=== PATIENT | male | born 1945 | race Caucasian/White ===

== ENCOUNTER 2023-07-07 09:06 | Inpatient (IN) | payer OTHER, MEDICARE, SELFPAY ==
--- NOTE | ~2023-07-07 | XR_ITS ---
EXAMINATION: XR CHEST CLINICAL INFORMATION: Shortness of breath. COMPARISON: None available. TECHNIQUE: Frontal view of the chest was obtained. FINDINGS: Lungs are well-inflated. There are some smoothly thickened septal lines in the periphery of lower lung zones. The right lateral costophrenic sulcus is blunted from a small pleural effusion. Cardiac silhouette is borderline enlarged. There is atherosclerotic calcification of the aorta. The visualized bones are intact. XR/XR chest 1V IMPRESSION: Mild interstitial pulmonary edema and small right pleural effusion (mild CHF).
[2023-07-07 09:12] VITALS: BP 155/42; PULSE 73; RESP 20; TEMP 36.8; O2SAT 97; BMI 30.1
[2023-07-07 09:35] LABS: MANUAL DIFF FLAG NO
[2023-07-07 09:36] LABS: Basophils Percent Auto 0.5 % (0-2); Eosinophils Absolute Auto 0.1 X10*3/uL (0.0-0.4); Eosinophils Percent Auto 0.8 % (0-4); Hematocrit 34.3 % (42.0-52.0); Hemoglobin 12.3 g/dl (14.0-18.0); Imm Gran Abs Auto 0.03 X10*3/uL (0.00-0.03); Imm Gran Pct Auto 0.4 % (0.0-0.4); Lymphocytes Percent Auto 13.7 % (20-40); Mean Corpuscular HGB Conc 35.9 g/dl (31.0-36.0); Mean Corpuscular Hemoglobin 30.2 pg (27.0-33.0); Mean Corpuscular Volume 84.3 fL (80.0-98.0); Mean Platelet Volume 9.2 fL (9.4-12.4); Monocytes Absolute Auto 0.7 X10*3/uL (0.1-1.2); Monocytes Percent Auto 9.4 % (2-11); Neutrophils Absolute Auto 5.5 x10*3/uL (2.0-8.3); Neutrophils Percent Auto 75.2 % (45-73); Platelet Count 171 X10*3/uL (160-400); Red Blood Count 4.07 X10*6/uL (4.60-5.80); Red Cell Distribution Width 11.9 % (11.0-16.0); White Blood Count 7.3 X10*3/uL (4.8-10.8)
[2023-07-07 09:50] LABS: Alanine Aminotransferase 7 U/L (0-40); Albumin Level 4.3 g/dL (3.5-5.0); Alkaline Phosphatase 87 U/L (39-117); Anion Gap 14 (12-20); Aspartate Amino Transferase 16 U/L (5-37); Bilirubin Total 0.7 mg/dL (0.0-1.0); Blood Urea Nitrogen 8 mg/dL (9-16); Calcium 9.2 mg/dL (8.4-10.2); Carbon Dioxide 26 mmol/L (22-29); Chloride 92 mmol/L (96-108); Creatinine Clr Calc Pharmacy 68.8; Estimated Glomerular Filt Rate > 60; Glucose Random 109 mg/dL (60-115); Potassium 3.7 mmol/L (3.3-5.1); Sodium 128 mmol/L (135-145); Total Protein 7.5 g/dL (6.5-8.0)
[2023-07-07 09:56] LABS: B Type Natriuretic Peptide 762 pg/mL (<100)
[2023-07-07 12:59] VITALS: PULSE 72; RESP 18; TEMP 36.5; O2SAT 98
--- NOTE | 2023-07-07 13:04 | PC.NURSE ---
pt a&ox3, vss, nsr on the media monitor. pt verbalizing SOB/lightheaded/dizziness for the past week. pt able to speak in full, clear sentences w/o difficulty. no WOB or difficulties shown. diminished lung sounds noted bilaterally. pt endorses that SOB worsens upon movement/exertion. pt also states feeling like he needs to use the restroom more frequently than usual. pt states hematuria but denies dysuria at this time. also denies n/v at this time but has occasional diarrhea. pt resting comfortably in in no apparent distress. respirations even and unlabored. pt's son is bedside for support. call hubbard placed within reach.
--- NOTE | 2023-07-07 13:13 | ED_ITS ---
HPI - SOB/Dyspnea General Chief Complaint: Dyspnea Stated Complaint: Diff breathing/abd pain Time Seen by Provider: 07/07/23 13:13 Source: patient Mode of arrival: ambulatory Limitations: no limitations History of Present Illness HPI Narrative: 78-year-old male with history of HTN followed by the OR is presenting to ED for evaluation of 1 week history of shortness of breath, dyspnea. Feels worse laying supine. Reports previous similar episodes, but does not report having heart failure or following with cardiology. Also complaining of wet cough, though no sputum expelled. Reports 1 week history of abdominal pain, nausea, and 1 episode of non-bloody diarrhea this morning. Denies headache, chest pain, vomiting, back pain, lower extremity pain, urinary symptoms. Denies noticing any leg swelling. MD elicited complaint: shortness of breath and cough Onset (ago): week(s) Timing: constant and progressively worsening Severity: similar to previous episodes Exacerbating factors: lying flat Relieving factors: upright position Known history of: other (HTN) Related Data Allergies Allergy/AdvReac Type Severity Reaction Status Date / Time erythromycin base Allergy Nausea and Verified 07/07/23 09:20 Vomiting NSAIDS (Non-Steroidal Allergy Nausea and Verified 07/07/23 09:20 Anti-Inflamma Vomiting tetracycline Allergy Nausea and Verified 07/07/23 09:20 Vomiting PMFSH Past Medical History Medical History (Updated 07/07/23 @ 14:21 by Kevon Argueta MD) HTN (hypertension) Social History Social History Alcohol intake: never Smoked in Last 30 Days: No Use of substances other than those prescribed or required for medical reasons: No Advance Directives: No Advance Directives Information Provided: No Physical Exam 2 Vital Signs: Vital Signs: Last Vital Signs Temp 97.7 F 07/07/23 12:59 Pulse 72 07/07/23 12:59 Resp 18 07/07/23 12:59 BP 155/42 H 07/07/23 09:12 Pulse Ox 98 07/07/23 12:59 O2 Del Method Room Air 07/07/23 12:59 BMI result Body Mass Index 30.1 Const: General: cooperative, healthy appearing, comfortable and no acute distress Nutritional Appearance: overweight Orientation/consciousness: p atient oriented x3 Limitations: no limitations HEENT: Head: Yes normal to inspection Ears: hearing grossly normal bilaterally Resp: Effort & Inspection: normal respiratory effort and able to speak in complete sentences Auscultation: clear to auscultation bilaterally Cardio: Rate: regular rate Rhythm: regular rhythm Heart sounds: Murmur heart sound present (Whooshing systolic murmur.) GI: Palpation (GI): Soft to palpation, Tenderness to palpation present (GI) (Mild, diffuse TTP.), no guarding, no hernias and no masses Neuro: General: patient oriented x3 Extrem: General: Yes edema (1+ pitting edema in bilateral LE.) Medications Administered Discontinued Medications Generic Name Dose Route Start Last Admin Trade Name Freq PRN Reason Stop Dose Admin Furosemide 40 mg 07/07/23 13:14 07/07/23 13:44 Furosemide 40 Mg/4 Ml Vial IVPUSH 07/07/23 13:15 40 mg ONCE ONE Administration Protocol Medical Decision Making Medical Decision Making [facility] Narrative: 78-year-old male [facility] ED for evaluation of 1 week history of shortness of breath, wet cough, abdominal discomfort, nausea. Physical exam reveals 1+ bilateral pitting edema and whooshing systolic murmur. Lungs clear to auscultation bilaterally. Abdomen soft, mildly tender, without guarding. Plan: CBC, CMP, troponins, BNP, COVID, CXR, EKG, IV Lasix. BNP is elevated. EKG reveals LVH, no ST elevation or depression. Troponins negative. CXR shows pulmonary congestion with right pleural effusion. given patient's presentation he will require admission for further evaluation and treatment. Patient counseled on plan of care and he is in agreement. Differential Diagnosis Differential Diagnoses: The differential diagnosis associated with the presentation includes Heart failure exacerbation, pneumonia, hepatomegaly from hepatic congestion, viral respiratory illness, Valvular abnormality Admission/Observation Consideration of admission/observation: Escalation of care including admission/observation considered Consult Healthcare Provider Management of the patient was discussed with: Hospitalist Lab Data [facility] Lab Attestation statement: I reviewed the patient's lab results. hyponatremia likely due to volume overload 07/07/23 09:25 07/07/23 09:25 Labs: Lab Results 07/07/23 07/07/23 Range/Units :25 14:01 WBC 7.3 (4.8-10.8) X10*3/uL RBC 4.07 L (4.60-5.80) X10*6/uL Hgb 12.3 L (14.0-18.0) g/dl Hct 34.3 L (42.0-52.0) % MCV 84.3 (80.0-98.0) fL MCH 30.2 (27.0-33.0) pg MCHC 35.9 (31.0-36.0) g/dl RDW 11.9 (11.0-16.0) % Plt Count 171 (160-400) X10*3/uL MPV 9.2 L (9.4-12.4) fL Immature Gran % (Auto) 0.4 (0.0-0.4) % Neut % (Auto) 75.2 H (45-73) % Lymph % (Auto) 13.7 L (20-40) % [place] % (Auto) 9.4 (2-11) % Eos % (Auto) 0.8 (0-4) % Baso % (Auto) 0.5 (0-2) % Lymph # (Auto) 1.0 L (1.2-4.9) X10*3/uL [place] # (Auto) 0.7 (0.1-1.2) X10*3/uL Eos # (Auto) 0.1 (0.0-0.4) X10*3/uL Baso # (Auto) 0.0 (0.0-0.2) X10*3/uL Abs Immat Gran (auto) 0.03 (0.00-0.03) X10*3/uL Absolute Neuts (auto) 5.5 (2.0-8.3) x10*3/uL Absolute Nucleated RBC 0.000 (0.0-0.012) X10*3/uL Nucleated RBC % (auto) 0.0 (0.0-0.2) /100WBC Sodium 128 L (135-145) mmol/L Potassium 3.7 (3.3-5.1) mmol/L Chloride 92 L (96-108) mmol/L Carbon Dioxide 26 (22-29) mmol/L Anion Gap 14 (12-20) BUN 8 L (9-16) mg/dL Creatinine 0.84 (0.5-1.4) mg/dL Estim Creat Clear Calc 68.8 Estimated GFR > 60 Random Glucose 109 (60-115) mg/dL Calcium 9.2 (8.4-10.2) mg/dL Total Bilirubin 0.7 (0.0-1.0) mg/dL AST 16 (5-37) U/L ALT 7 (0-40) U/L Alkaline Phosphatase 87 (39-117) U/L Troponin I High Sens < 2.7 (<3.5-35.0) ng/L B-Natriuretic Peptide 762 H (<100) pg/mL Total Protein 7.5 (6.5-8.0) g/dL Albumin 4.3 (3.5-5.0) g/dL COVID-19 (FAN) Negative (Negative) COVID-19 Clin Com See Note Independent Interpretation I performed an independent interpretation of an: EKG and Plain X-Ray Interpretation: EKG: ventricular rate 78, LVH with QRS widening, no ST elevation or depression. I have reviewed the patient's imaging and I am in agreement with the radiologist reading. - mild CHF noted, no significant pleural effusion or infiltrate Radiology Impression Discussion of test interpretation with radiology: I have reviewed the radiologist's reading. Radiologist Impression: EXAMINATION: XR CHEST CLINICAL INFORMATION: Shortness of breath. COMPARISON: None available. TECHNIQUE: Frontal view of the chest was obtained. FINDINGS: Lungs are well-inflated. There are some smoothly thickened septal lines in the periphery of lower lung zones. The right lateral costophrenic sulcus is blunted from a small pleural effusion. Cardiac silhouette is borderline enlarged. There is atherosclerotic calcification of the aorta. The visualized bones are intact. XR/XR chest 1V IMPRESSION: Mild interstitial pulmonary edema and small right pleural effusion (mild CHF). Prescription Management I considered prescription management with: Other ( diuretics) Chronic Conditions Patient?s care impacted by: Hypertension Critical Care Time Critical Care Time Critical Care Time: Yes Total Critical Care Time: 36 Attestation: I have personally provided critical care time exclusive of time spent on separately billable procedures. Time includes review of lab data, radiology results, discussion with consultants, and monitoring for potential decompensation. Intervention performed as documented. Discharge Plan Discharge Clinical Impression: Acute exacerbation of congestive heart failure, Heart murmur Patient Disposition: Admitted As Inpatient
--- NOTE | 2023-07-07 13:15 | ECG_ITS ---
Test Reason : SOB Blood Pressure : / mmHG Vent. Rate : 078 BPM Atrial Rate : 078 BPM P-R Int : 250 ms QRS Dur : 124 ms QT Int : 416 ms P-R-T Axes : 046 021 051 degrees QTc Int : 474 ms Sinus rhythm with 1st degree A-V block Possible Left atrial enlargement Left ventricular hypertrophy with QRS widening ( Sokolow-Ferraro , [place] product ) Abnormal ECG No previous ECGs available Referred By: Shyann Arreola Electronically Signed By:JEOVANNY MORIN
[2023-07-07 13:17] LABS: Troponin-I High Sensitivity < 2.7 ng/L (<3.5-35.0)
[2023-07-07] MEDS: Furosemide 40 MG/4 ML VIAL IVPUSH ×2 (13:44→17:12)
--- NOTE | 2023-07-07 13:48 | PC.NURSE ---
20gIV placed in the left AC w/o complications - medications administered per provider order. pt resting comfortably in no apparent distress.
--- NOTE | 2023-07-07 14:19 | P.HPHOSP_ITS ---
History of Present Illness Date of Service: 07/07/23 Chief Complaint: sob 78M PMH HTN presented with sob. Patient reports shortness of breath over the past week. Worse on exertion. Positive orthopnea. Positive lower extremity bilateral edema, in ED, chest x-ray consistent with pulmonary edema, elevated BNP. Patient denies chest pain, fevers, chills. Review of Systems 2 Review of Systems: Yes all other systems are reviewed and are negative [facility] Medical History (Updated 07/07/23 @ 14:21 by Kevon Argueta MD) HTN (hypertension) Social History Alcohol intake: never Smoked in Last 30 Days: No Use of substances other than those prescribed or required for medical reasons: No Advance Directives: No Advance Directives Information Provided: No Meds Allergies Allergy/AdvReac Type Severity Reaction Status Date / Time erythromycin base Allergy Nausea and Verified 07/07/23 09:20 Vomiting NSAIDS (Non-Steroidal Allergy Nausea and Verified 07/07/23 09:20 Anti-Inflamma Vomiting tetracycline Allergy Nausea and Verified 07/07/23 09:20 Vomiting Physical Exam 2 Vital Signs and Narrative: Vital Signs: Last Vital Signs Temp 97.7 F 07/07/23 12:59 Pulse 72 07/07/23 12:59 Resp 18 07/07/23 12:59 BP 155/42 H 07/07/23 09:12 Pulse Ox 98 07/07/23 12:59 O2 Del Method Room Air 07/07/23 12:59 BMI result Body Mass Index 30.1 General: AO X 3, no acute distress Resp: CTA bilateral, no accessory muscles used CVS: S1,S2,RRR, + murmur, 3 + bilateral edema GI: soft, non tender, non distended Neuro: motor grossly intact, alert Psych: appropriate affect, appropriate insight Results Labs 07/07/23 09:25 07/07/23 09:25 Labs: Laboratory Results - last 24 hr 07/07/23 09:25 MCV 84.3 MCH 30.2 MCHC 35.9 RDW 11.9 Plt Count 171 MPV 9.2 L Immature Gran % (Auto) 0.4 Neut % (Auto) 75.2 H Lymph % (Auto) 13.7 L [place] % (Auto) 9.4 Eos % (Auto) 0.8 Baso % (Auto) 0.5 Lymph # (Auto) 1.0 L [place] # (Auto) 0.7 Eos # (Auto) 0.1 Baso # (Auto) 0.0 Abs Immat Gran (auto) 0.03 Absolute Neuts (auto) 5.5 Absolute Nucleated RBC 0.000 Nucleated RBC % (auto) 0.0 Anion Gap 14 Estim Creat Clear Calc 68.8 Estimated GFR > 60 Random Glucose 109 Calcium 9.2 Total Bilirubin 0.7 AST 16 ALT 7 Alkaline Phosphatase 87 B-Natriuretic Peptide 762 H Total Protein 7.5 Albumin 4.3 Imaging Radiologist's Impressions: Impressions Chest X-Ray 07/07/23 09:45 IMPRESSION: Mild interstitial pulmonary edema and small right pleural effusion (mild CHF). Assessment and Plan (1) HTN (hypertension): Status: Acute Plan 78M PMH htn presented with sob Acute unspecified CHF Suspect valvular disorder IV Lasix, echo, cardio eval Hypertension Continue amlodipine, lisinopril hyponatremia likely hypervolemic, chf monitor dvt prophylaxis - lovenox full code patient with significant fluid overload, needs iv lasix, expected to require atleast 2 midnights inpatient. Time Spent With Patient Time: Total time managing care of this patient today ____ minutes. Quality Stroke Does the patient have a stroke diagnosis?: No VTE Prior VTE?: No VTE Risk Level:: Medical - moderate - high VTE Device Contraindication: Treatment Not Indicated VTE Drug Contraindication: N/A - Med Ordered
[2023-07-07 14:28] LABS: COVID-19 Test Negative (Negative); IDNOW Serial# 55D5AD1C
--- NOTE | 2023-07-07 14:40 | PHA.MEDREC ---
Addendum entered by Francesca Witt RPh 07/07/23 15:51: [facility], [facility] HCTZ to 25 mg daily Original Note: Pharmacy Consult ? Medication Reconciliation Pharmacy has completed the medication reconciliation. Patient reported medicaitons and dose. Waiting [facility] a [facility] the [facility] to confirm doses are [facility]. Patient reported he ran out of lisinopril. Francesca Witt, PharmD
[2023-07-07 15:03] VITALS: BP 143/52; PULSE 67; RESP 14; TEMP 37; O2SAT 95
--- NOTE | 2023-07-07 15:28 | PC.NURSE ---
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
[2023-07-07] MEDS: 0.9 % Sodium Chloride Flush 3 ML SYRINGE IVFLUSH ×2 (15:46→20:43)
--- NOTE | 2023-07-07 16:00 | CA_ITS ---
Transthoracic Echocardiogram Patient (Last, First, Middle): Maninder Prado Claude Gender: Male Date of : 1945 Age: 78 Procedure Date: 07/07/2023 Procedure Type: Transthoracic Echocardiogram Location: ER Height: 160.02 cm Weight: 77.11 kg BSA: 1.80 m2 Heart Rate: bpm BP: 155 / 42 mmHg Ultrasound Spec: KYLE/WALLACE Referring MD: Kevon Argueta MD Symptoms: chf, murmur Study Quality: Fair ECG Rhythm: Sinus Conclusions: - The left ventricular systolic function is normal. The calculated ejection fraction is 59% by biplane method. - There is severe aortic valve stenosis. The peak aortic velocity is 5.66 m/s with a calculated peak gradient of 128 mmHg. The mean gradient is 72 mmHg. The aortic valve area is 0.48 cm2. Findings Left Ventricle Mildly increased left ventricular cavity size. There is normal left ventricular wall thickness. The left ventricular systolic function is normal. The calculated ejection fraction is 59% by biplane method. Evidence suggests grade II (moderate) diastolic dysfunction. LV peak GLS -15.5%. Wall Motion Rest Echo Findings The basal inferior and basal inferolateral segments are hypokinetic. Right Ventricle Normal right ventricular cavity size and systolic function. Atria The left atrium is severely dilated. The right atrium is normal in size. Aortic Valve There is severe calcification of the aortic valve. There is severe aortic valve stenosis. The peak aortic velocity is 5.66 m/s with a calculated peak gradient of 128 mmHg. The mean gradient is 72 mmHg. The aortic valve area is 0.48 cm2. There is mild aortic valve regurgitation. Mitral Valve There is mild mitral annular calcification. There is no mitral valve regurgitation. There is no mitral valve stenosis. Pulmonic Valve The pulmonic valve was not well visualized. Tricuspid Valve There is trace tricuspid valve regurgitation. Tricuspid regurgitation envelope is inadequate for calculation of right ventricular systolic pressure. Great Vessels The asc aorta is normal in size. Venous The inferior vena cava is normal in size and collapses greater than 50% with inspiration. Pericardium/Pleural There is no evidence of pericardial effusion. Prior Study Comparison No prior study available for comparison. Measurements 2D Linear Measurements IVSd: 0.99 0.6-0.9/0.6-1.0 cm LVIDd: 5.93 3.9-5.3/4.2-5.9 cm LVIDd Index: 3.29 2.4-3.2/2.2-3.1 cm/m2 LVIDs: 4.79 2.0-3.6 cm LVPWd: 0.99 0.7-1.1 cm Ao Root: 3.10 2.1-3.5 cm LA Diam: 3.60 2.7-3.8/3.0-4.0 cm LAIDs Index: 2.00 1.5-2.3 cm/m2 LV Mass: 297.84 67-162/88-224 g LV Mass Index: 165.47 43-95/49-115 g/m2 LVOT Diam: 1.80 3.0+(-)1.3 cm 2D Systolic Function EF 4C: 61.30 >55% EF 2C: 56.40 >55% EF BiP: 58.90 >55% Mitral Valve MV Pk E: 1.04 MV PK A: 1.32 MV Decel Time: 148.00 E/A: 0.80 E'Lateral: 4.03 E'Medial: 4.79 E/E' Med: 21.70 E/E' Lat: 25.80 PHT: 43.00 MVA PHT: 5.12 Decel [place]: 7.00 Aortic Valve AoV Pk [place]: 5.66 AoV Mn [place]: 3.98 AoV VTI: 1.46 AoV Pk Grad: 128.00 Aov Mn Grad: 72.00 BRIDGET[place] Cont.VTI: 0.48 AI Pk [place]: 4.06 AI [place]: 2.50 LVOT LVOT Pk [place]: 0.93 LVOT Mn [place]: 0.69 LVOT VTI: 0.28 LVOT Pk Grad: 3.00 LVOT Mn Grad: 2.00 LVOT Diam: 1.80 LVOT Area: 2.54 Diastolic Function MV Pk E: 1.04 MV Pk A: 1.32 E/A: 0.80 E'Medial: 4.79 E/E' Med: 21.70 E' Laterial: 4.03 E/E' Lat: 25.80 Right Ventricle TAPSE (mm): 26.00 TVS' [place]: 15.00 Tricuspid Valve RA Press: 3.00 Great Vessels Aorta Ao Root-2D: 3.10 2.0-3.7 cm Ao Asc: 3.70 2.1-3.4 cm Updated in Other Vendor System with Status of Final Adam Kumar MD electronically signed on 07/08/2023 10:02:18 AM with status of Final
[2023-07-07 17:01] VITALS: BP 139/47; PULSE 68; RESP 12; TEMP 37; O2SAT 97
--- NOTE | 2023-07-07 17:16 | PC.NURSE ---
pt verbalizing that pharmacy came and obtained list of home medications. pt states that he takes 5mg oxycodone q6hr for generalized chronic pain. pt states he should have received dose at 1400 but is just now telling me. admitting provider notified and aware.
[2023-07-07] MEDS: oxyCODONE HCl Immed Release 5 MG TABLET PO (17:49)
--- NOTE | 2023-07-07 17:50 | PC.NURSE ---
medication administered per provider order.
--- NOTE | 2023-07-07 18:16 | PC.NURSE ---
report given to RN on IMC - will notify transport.
[2023-07-07 18:39] VITALS: BP 138/59; PULSE 62; RESP 20; TEMP 37.4; O2SAT 96
[2023-07-07 23:17] VITALS: BP 133/55; PULSE 59; RESP 18; TEMP 36.9; O2SAT 96
[2023-07-07] MEDS: oxyCODONE HCl Immed Release 5 MG TABLET 10 MG PO (23:24)
--- NOTE | 2023-07-08 | ECG_ITS ---
Test Reason : rhythm check Blood Pressure : / mmHG Vent. Rate : 052 BPM Atrial Rate : 052 BPM P-R Int : 260 ms QRS Dur : 116 ms QT Int : 484 ms P-R-T Axes : 000 053 078 degrees QTc Int : 450 ms Sinus bradycardia with 1st degree A-V block Left ventricular hypertrophy with QRS widening and repolarization abnormality ( Sokolow-Ferraro , [place] product ) Abnormal ECG When compared with ECG of 07-JUL-2023 13:21, Vent. rate has decreased BY 26 BPM T wave inversion now evident in Anterior leads Referred By: Senthil Fulton Electronically Signed By:JEOVANNY MORIN
[2023-07-08 03:19] VITALS: BP 140/49; PULSE 65; RESP 16; TEMP 36.8; O2SAT 98
[2023-07-08 05:57] LABS: Hematocrit 32.8 % (42.0-52.0); Hemoglobin 11.9 g/dl (14.0-18.0); Mean Corpuscular HGB Conc 36.3 g/dl (31.0-36.0); Mean Corpuscular Volume 82.6 fL (80.0-98.0); Mean Platelet Volume 9.2 fL (9.4-12.4); Platelet Count 186 X10*3/uL (160-400); Red Blood Count 3.97 X10*6/uL (4.60-5.80); Red Cell Distribution Width 11.7 % (11.0-16.0); White Blood Count 9.9 X10*3/uL (4.8-10.8)
[2023-07-08 06:19] LABS: Anion Gap 14 (12-20); Blood Urea Nitrogen 11 mg/dL (9-16); Carbon Dioxide 28 mmol/L (22-29); Chloride 88 mmol/L (96-108); Creatinine Clr Calc Pharmacy 56.6; Estimated Glomerular Filt Rate > 60; Glucose Fasting 114 mg/dL (60-99); Potassium 2.9 mmol/L (3.3-5.1); Sodium 127 mmol/L (135-145)
[2023-07-08 06:26] LABS: Magnesium 1.3 mg/dL (1.6-2.6)
[2023-07-08] MEDS: Magnesium Sulfate/H2O 2 GM/50 ML PIGGYBACK IV (06:48)
[2023-07-08] MEDS: oxyCODONE HCl Immed Release 5 MG TABLET 10 MG PO ×2 (06:54→13:06)
[2023-07-08 06:58] VITALS: BP 145/66; PULSE 62; RESP 20; TEMP 37.6; O2SAT 96
[2023-07-08] MEDS: Potassium Chloride ER 20 MEQ TAB.ER.PRT 40 MEQ PO (08:23)
[2023-07-08] MEDS: Enoxaparin Sodium 40 MG/0.4 ML SYRINGE SUBCUT (08:24)
[2023-07-08] MEDS: lisinopriL 40 MG TABLET PO (08:24)
[2023-07-08] MEDS: amLODIPine Besylate 10 MG TABLET PO (08:24)
[2023-07-08] MEDS: Magnesium Oxide 400 MG TABLET 800 MG PO (08:24)
[2023-07-08] MEDS: 0.9 % Sodium Chloride Flush 3 ML SYRINGE IVFLUSH (08:37)
--- NOTE | 2023-07-08 09:31 | P.PNIM_ITS ---
Subjective Subjective Date of Service: 07/08/23 Interval History: sob improving Physical Exam 2 Vital Signs: Vital Signs: Last Vital Signs Temp 99.7 F 07/08/23 06:58 Pulse 62 07/08/23 06:58 Resp 20 07/08/23 06:58 BP 145/66 H 07/08/23 06:58 Pulse Ox 96 07/08/23 06:58 O2 Del Method Room Air 07/08/23 06:58 BMI result Body Mass Index 30.1 General: AO X 3, no acute distress Resp: CTA bilateral, no accessory muscles used CVS: S1,S2,RRR, murmur, imprvoed edema GI: soft, non tender, non distended Neuro: motor grossly intact, alert Psych: appropriate affect, appropriate insight Objective Data Active Medications Amlodipine Besylate (Amlodipine Besylate 10 Mg Tablet) 10 mg PO DAILY [facility]; Protocol Last Admin: 07/08/23 08:24 Dose: 10 mg Documented By: NINI Enoxaparin Sodium (Enoxaparin Sodium 40 Mg/0.4 Ml Syringe) 40 mg SUBCUT Q24H [facility] Last Admin: 07/08/23 08:24 Dose: 40 mg Documented By: NINI Furosemide (Furosemide 40 Mg/4 Ml Vial) 40 mg IVPUSH BID@0900,1800 [facility]; Protocol Last Admin: 07/07/23 17:12 Dose: 40 mg Documented By: RICHARD Latanoprost (Latanoprost 0.005 % Ophth [place] 2.5 Ml Drops) 1 drop EYE-BOTH BEDTIME [facility] Last Admin: 07/07/23 20:44 Dose: Not Given Documented By: ROSA Non-Admin Reason: not available Lisinopril (Lisinopril 40 Mg Tablet) 40 mg PO DAILY [facility]; Protocol Last Admin: 07/08/23 08:24 Dose: 40 mg Documented By: NINI Magnesium Oxide (Magnesium Oxide 400 Mg Tablet) 800 mg PO BIDPC [facility] Stop: 07/09/23 08:29 Last Admin: 07/08/23 08:24 Dose: 800 mg Documented By: NINI Oxycodone HCl (Oxycodone Hcl Immed Release 5 Mg Tablet) 10 mg PO Q6H PRN PRN Reason: pain Last Admin: 07/08/23 06:54 Dose: 10 mg Documented By: ROSA Oxycodone HCl (Oxycodone Hcl Immed Release 5 Mg Tablet) 5 mg PO Q4H PRN PRN Reason: moderate pain Last Admin: 07/07/23 17:49 Dose: 5 mg Documented By: RICHARD Sodium Chloride (0.9 % Sodium Chloride Flush 3 Ml Syringe) 3 ml IVFLUSH QSHIFT [facility] Last Admin: 07/08/23 08:37 Dose: 3 ml Documented By: NINI Timolol Maleate (Timolol Maleate 0.5 % Oph [place] 5 Ml Drbtl) 1 drop EYE-BOTH BID [facility] Last Admin: 07/08/23 08:38 Dose: Not Given Documented By: NINI Non-Admin Reason: Med Not Available Labs 07/08/23 05:27 07/08/23 05:27 Labs: Laboratory Results - last 24 hr 07/07/23 07/07/23 07/08/23 09:25 14:01 05:27 MCV 84.3 82.6 MCH 30.2 30.0 MCHC 35.9 36.3 H RDW 11.9 11.7 Plt Count 171 186 MPV 9.2 L 9.2 L Immature Gran % (Auto) 0.4 Neut % (Auto) 75.2 H Lymph % (Auto) 13.7 L [place] % (Auto) 9.4 Eos % (Auto) 0.8 Baso % (Auto) 0.5 Lymph # (Auto) 1.0 L [place] # (Auto) 0.7 Eos # (Auto) 0.1 Baso # (Auto) 0.0 Abs Immat Gran (auto) 0.03 Absolute Neuts (auto) 5.5 Absolute Nucleated RBC 0.000 0.000 Nucleated RBC % (auto) 0.0 0.0 Anion Gap 14 14 Estim Creat Clear Calc 68.8 56.6 Estimated GFR > 60 > 60 Random Glucose 109 Fasting Glucose 114 H Calcium 9.2 9.0 Magnesium 1.3 L* Total Bilirubin 0.7 AST 16 ALT 7 Alkaline Phosphatase 87 B-Natriuretic Peptide 762 H Total Protein 7.5 Albumin 4.3 COVID-19 (FAN) Negative COVID-19 Clin Com See Note Assessment and Plan (1) Heart murmur: Status: Acute Plan 8M PMH htn presented with sob Acute unspecified CHF Suspect valvular disorder IV Lasix held for hypokalemia, hypomagensemia, echo, cardio eval hypomagnesemia, hypokalemia replace and monitor Hypertension Continue amlodipine, lisinopril hyponatremia likely hypervolemic, chf monitor dvt prophylaxis - lovenox full code reason for continued hospitalization: work up valve disorder Time Spent With Patient Time: Total time managing care of this patient today ____ minutes. Quality Stroke Does the patient have a stroke diagnosis?: No VTE Prior VTE?: No VTE Risk Level:: Medical - moderate - high VTE Device Contraindication: Treatment Not Indicated VTE Drug Contraindication: N/A - Med Ordered
--- NOTE | 2023-07-08 09:38 | PM.CNCAR ---
History of Present Illness History of Present Illness Date of Service: 07/08/23 Chief complaint: chf Narrative: This is a cardiology consultation regarding shortness of breath. Patient states that over the last few months, he has been feeling short of breath with activity. He has to do things slowly otherwise feels short of breath. Apparently also had some leg swelling. No clear anginal-type chest pains. He has been admitted with a diagnosis of congestive heart failure. Patient himself does not have any known cardiac issues in the past including coronary artery disease or myocardial infarction or cardiomyopathy or in fact anything cardiac sounding. Review of Systems Review of Systems: Yes all other systems are reviewed and are negative Constitutional: Constitutional: Reports as per HPI and Reports no additional constitutional complaints Eyes: Eyes: Reports as per HPI and Denies no additional eye complaints ENT: Denies system reviewed and no additional complaints, except as documented and Reports as per HPI Cardiovascular: Cardiovascular: Reports as per HPI, Reports no additional cardiovascular complaints, Denies acrocyanosis, Denies cool extremities, Denies chest pain, Denies leg edema, Denies lightheadedness, Denies palpitations and Reports dyspnea Respiratory: Respiratory: Reports as per HPI, Denies no additional respiratory complaints and Reports dyspnea Gastrointestinal: Gastrointestinal: Reports as per HPI and Denies no additional gastrointestinal complaints Genitourinary: Genitourinary: Reports no additional male genitourinary complaints and Reports as per HPI Musculoskeletal: Musculoskeletal: Reports no additional musculoskeletal complaints and Reports as per HPI Integumentary/Breasts: Skin/Breast: Reports system reviewed and no additional complaints, except as docu Neurologic: Reports system reviewed and no additional complaints, except as documented and Reports as per HPI Psychiatric: Psychiatric: Reports no additional psychiatric complaints and Reports as per HPI Endocrine: Endocrine: Reports no additional endocrine complaints, Reports as per HPI and Denies palpitations Hematologic/Lymphatic: Hematologic/Lymphatic: Reports no additional hematologic/lymphatic complaints and Reports as per HPI Allergic/Immunologic: Allergic/Immunologic: Reports no additional allergic/immunologic complaints and Reports as per HPI PMF Past Medical History Medical History (Updated 07/08/23 @ 09:44 by Adam Kumar MD) HTN (hypertension) Family History Family History (Updated 07/08/23 @ 09:41 by Adam Kumar MD) Brother S/P CABG (coronary artery bypass graft) Social History Social History Household Members: None Housing: House Do you presently have visiting nurse or other home services: No Alcohol intake: never Patient Tobacco Use Status: Former Tobacco user Smoked in Last 30 Days: No Use of substances other than those prescribed or required for medical reasons: No Currently Displaying Signs/Symptoms of Drug Intoxication Withdrawal: No Advance Directives: No Advance Directives Information Provided: No Do you have thoughts of harming others: None Do you have a plan to hurt others: No Plan Recently lost weight without trying: No Nutrition Risks: No Nutritional Risk Meds Allergies Allergy/AdvReac Type Severity Reaction Status Date / Time erythromycin base Allergy Nausea and Verified 07/07/23 09:20 Vomiting NSAIDS (Non-Steroidal Allergy Nausea and Verified 07/07/23 09:20 Anti-Inflamma Vomiting tetracycline Allergy Nausea and Verified 07/07/23 09:20 Vomiting Active Medications: Current Medications Amlodipine Besylate (Amlodipine Besylate 10 Mg Tablet) 10 mg PO DAILY [facility]; Protocol Last Admin: 07/08/23 08:24 Dose: 10 mg Enoxaparin Sodium (Enoxaparin Sodium 40 Mg/0.4 Ml Syringe) 40 mg SUBCUT Q24H [facility] Last Admin: 07/08/23 08:24 Dose: 40 mg Furosemide (Furosemide 40 Mg/4 Ml Vial) 40 mg IVPUSH BID@0900,1800 [facility]; Protocol Last Admin: 07/07/23 17:12 Dose: 40 mg Latanoprost (Latanoprost 0.005 % Ophth Cielo 2.5 Ml Drops) 1 drop EYE-BOTH BEDTIME [facility] Last Admin: 07/07/23 20:44 Dose: Not Given Lisinopril (Lisinopril 40 Mg Tablet) 40 mg PO DAILY [facility]; Protocol Last Admin: 07/08/23 08:24 Dose: 40 mg Magnesium Oxide (Magnesium Oxide 400 Mg Tablet) 800 mg PO BIDPC [facility] Stop: 07/09/23 08:29 Last Admin: 07/08/23 08:24 Dose: 800 mg Oxycodone HCl (Oxycodone Hcl Immed Release 5 Mg Tablet) 10 mg PO Q6H PRN PRN Reason: pain Last Admin: 07/08/23 06:54 Dose: 10 mg Oxycodone HCl (Oxycodone Hcl Immed Release 5 Mg Tablet) 5 mg PO Q4H PRN PRN Reason: moderate pain Last Admin: 07/07/23 17:49 Dose: 5 mg Sodium Chloride (0.9 % Sodium Chloride Flush 3 Ml Syringe) 3 ml IVFLUSH QSHIFT [facility] Last Admin: 07/08/23 08:37 Dose: 3 ml Timolol Maleate (Timolol Maleate 0.5 % Oph Cielo 5 Ml Drbtl) 1 drop EYE-BOTH BID [facility] Last Admin: 07/08/23 08:38 Dose: Not Given Home Medications Medication Instructions Recorded Confirmed Last Taken Type amlodipine 10 mg tablet 10 mg PO DAILY 07/07/23 07/07/23 07/07/23 History hydrochlorothiazide 25 mg tablet 25 mg PO DAILY 07/07/23 07/07/23 07/07/23 History latanoprost 0.005 % eye drops 1 drp ophthalmic (eye) QPM 07/07/23 07/07/23 07/06/23 History lisinopril 40 mg tablet 40 mg PO DAILY 07/07/23 07/07/23 Unknown History oxycodone-acetaminophen 5 mg-325 2 tab PO Q6H PRN Pain 07/07/23 07/07/23 Unknown History mg tablet timolol maleate 0.5 % eye drops 1 drp ophthalmic (eye) BID 07/07/23 07/07/23 07/07/23 History Physical Exam Vital Signs: Vital Signs: Last Vital Signs Temp 99.7 F 07/08/23 06:58 Pulse 62 07/08/23 06:58 Resp 20 07/08/23 06:58 BP 145/66 H 07/08/23 06:58 Pulse Ox 96 07/08/23 06:58 O2 Del Method Room Air 07/08/23 06:58 BMI result Body Mass Index 30.1 Const: General: comfortable and no acute distress Orientation/consciousness: patient oriented x3 HEENT: Other: Unremarkable Head: Yes normal to inspection Neck: Neck: Yes normal visual inspection Chest: Chest palpation & inspection: normal inspection of the chest Resp: Auscultation: clear to auscultation bilaterally Cardio: Palpation: normal PMI Heart sounds: S1 normal heart sound present, S2 normal heart sound present, no gallops, Murmur heart sound present systolic III/ and at the right sternal border and no rubs GI: Palpation (GI): Soft to palpation Back/Spine/Pelvis: Other: unremarkable Skin: General skin exam: no rashes or lesions noted Neuro: General: patient oriented x3 Extrem: Other: Trace edema General: Yes normal to inspection Psych: Mental Status: mental status grossly normal Objective Labs and Meds 07/08/23 05:27 07/08/23 05:27 Lab results: Laboratory Results - last 24 hr 07/07/23 07/07/23 07/08/23 09:25 14:01 05:27 WBC 9.9 RBC 3.97 L Hgb 11.9 L Hct 32.8 L MCV 82.6 MCH 30.0 MCHC 36.3 H RDW 11.7 Plt Count 186 MPV 9.2 L Absolute Nucleated RBC 0.000 Nucleated RBC % (auto) 0.0 Sodium 128 L 127 L Potassium 3.7 2.9 L D Chloride 92 L 88 L Carbon Dioxide 26 28 Anion Gap 14 14 BUN 8 L 11 Creatinine 0.84 1.02 Estim Creat Clear Calc 68.8 56.6 Estimated GFR > 60 > 60 Random Glucose 109 Fasting Glucose 114 H Calcium 9.2 9.0 Magnesium 1.3 L* Total Bilirubin 0.7 AST 16 ALT 7 Alkaline Phosphatase 87 Troponin I High Sens < 2.7 B-Natriuretic Peptide 762 H Total Protein 7.5 Albumin 4.3 COVID-19 (FAN) Negative COVID-19 Clin Com See Note ECG Interpretation: EKG with sinus bradycardia, 52/Min; left ventricular hypertrophy pattern. Imaging Radiologist's impression: Impressions Chest X-Ray 07/07/23 09:45 IMPRESSION: Mild interstitial pulmonary edema and small right pleural effusion (mild CHF). Assessment and Plan (1) Aortic stenosis: Qualifiers: Cardiac valve disease etiology: nonrheumatic Qualified Code(s): I35.0 - Nonrheumatic aortic (valve) stenosis Status: Acute (2) Acute exacerbation of congestive heart failure: Qualifiers: Heart failure type: unspecified Qualified Code(s): I50.9 - Heart failure, unspecified Status: Acute Plan On examination, heart murmur suggestive of probably severe aortic stenosis. High sensitivity troponin well within normal limits. Cardiac BNP is high. Otherwise, labs show low sodium, low potassium and low magnesium. Chest x-ray shows mild interstitial pulmonary edema and small right pleural effusion. Will review the echocardiogram. If indeed the aortic stenosis severe, then will need cardiac catheterization a workup towards possibly TAVR. Otherwise, hold off aggressive diuretics and rather correct electrolytes for now as he does not seem to volume overloaded. Time Spent With Patient Time: Total time managing care of this patient today ____ minutes. Procedures Date of Service Date of Service: 07/08/23
--- NOTE | 2023-07-08 10:52 | P.DS_ITS ---
DS: Providers Provider Date of Service: 07/08/23 Date of admission: 07/07/23 14:18 Primary care physician: PRISCILLA Larkin Consults: 07/07/23 14:17 Consult to Cardiology Routine Consulting [place] [facility] [facility] Reason for consultation: new chf Has provider been notified: Yes DS: Diagnosis Discharge Diagnosis (1) Aortic stenosis: Status: Acute (2) Acute exacerbation of congestive heart failure: Status: Acute DS: Summary Hospital Course Hospital Course: from initial hpi: 78M PMH HTN presented with sob. Patient reports shortness of breath over the past week. Worse on exertion. Positive orthopnea. Positive lower extremity bilateral edema, in ED, chest x-ray consistent with pulmonary edema, elevated BNP. Patient denies chest pain, fevers, chills. hospital course: Patient was admitted for acute CHF with preserved ejection fraction due to severe aortic stenosis. He received IV Lasix, had some improvement shortness of breath. Due to severity of aortic stenosis recommendations were to transfer to [facility] for further management. For acute hypomagnesemia and hypokalemia patient received replacement, this should be monitored. Hypertension was continue amlodipine, lisinopril, Imdur. Hyponatremia, sodium is 127 at time of transfer. Should be on fluid restriction. Time Spent with Patient Time attestation: Total time managing care of this patient today ____ minutes. Discharge coordination time: Greater than 30 minutes Quality: Safe Use of Opioids Does Pt have an Active Cancer Diagnosis on the Problem List?: No Quality: Stroke Does the patient have a stroke diagnosis?: No Physical Exam Vital Signs: Vital Signs: Last Vital Signs Temp 99.7 F 07/08/23 06:58 Pulse 62 07/08/23 06:58 Resp 20 07/08/23 06:58 BP 145/66 H 07/08/23 06:58 Pulse Ox 96 07/08/23 06:58 O2 Del Method Room Air 07/08/23 06:58 BMI result Body Mass Index 30.1 Const: General: comfortable and no acute distress Orientation/consciousness: patient oriented x3 HEENT: Other: Unremarkable Head: Yes normal to inspection Neck: Neck: Yes normal visual inspection Chest: Chest palpation & inspection: normal inspection of the chest Resp: Auscultation: clear to auscultation bilaterally Cardio: Palpation: normal PMI Heart sounds: S1 normal heart sound present, S2 normal heart sound present, no gallops, Murmur heart sound present systolic III/ and at the right sternal border and no rubs GI: Palpation (GI): Soft to palpation Back/Spine/Pelvis: Other: unremarkable Skin: General skin exam: no rashes or lesions noted Neuro: General: patient oriented x3 Extrem: Other: Trace edema General: Yes normal to inspection Psych: Mental Status: mental status grossly normal DS: Data Data Completed and Pending Labs on day of discharge: Laboratory Results - last 24 hr 07/07/23 07/07/23 07/08/23 09:25 14:01 05:27 WBC 9.9 RBC 3.97 L Hgb 11.9 L Hct 32.8 L MCV 82.6 MCH 30.0 MCHC 36.3 H RDW 11.7 Plt Count 186 MPV 9.2 L Absolute Nucleated RBC 0.000 Nucleated RBC % (auto) 0.0 Sodium 127 L Potassium 2.9 L D Chloride 88 L Carbon Dioxide 28 Anion Gap 14 BUN 11 Creatinine 1.02 Estim Creat Clear Calc 56.6 Estimated GFR > 60 Fasting Glucose 114 H Calcium 9.0 Magnesium 1.3 L* Troponin I High Sens < 2.7 COVID-19 (FAN) Negative COVID-19 Clin Com See Note Discharge Plan Discharge Anticipated Discharge Date/Time: 07/08/23 10:51 Patient Disposition: Xfer [facility] Hospital Discharge Diagnosis: aortic stenosis Referrals: Antwon Altamirano PA [Primary Care Provider] - 1 Week Discharge Medications: Continued latanoprost 0.005 % drops 1 drp ophthalmic (eye) QPM amlodipine 10 mg Tablet 10 mg PO DAILY timolol maleate 0.5 % drops 1 drp ophthalmic (eye) BID lisinopril 40 mg Tablet 40 mg PO DAILY oxycodone-acetaminophen 5-325 mg Tablet 2 tab PO Q6H PRN (Reason: Pain) hydrochlorothiazide 25 mg Tablet 25 mg PO DAILY Discharge Orders: Discharge Order (Routine); Ordered 07/08/23 Ordered By: Kevon Argueta Diet: Advance to usual diet Activity on Discharge: As tolerated Stand Alone Forms: Patient Portal Discharge page Care Plan Goals: recovery Health Concerns: severe Plan of Treatment: vivisnfer to [facility] [place] Assessment: see above
[2023-07-08 10:55] VITALS: BP 102/53; PULSE 59; RESP 20; TEMP 36.7; O2SAT 96
--- NOTE | 2023-07-08 11:22 | MHC.CM.PN ---
Per ROUNDS discussion, Patient will be dc/transferred to [facility].
== END 2023-07-08 14:15 | disposition short-term general hospital (02) | DRG 291 ==
LOC: HO.ED 13:39 → HO.EDOVER 14:29 → HO.IMC 17:45
PROVIDERS: Physician Assistant; Admitting Provider Internal Medicine; Emergency Provider Student in an Organized Health Care Education/Training Program; PCP Physician Assistant Medical; Visit Provider Internal Medicine
DX: I11.0 Hypertensive heart disease with heart failure (principal); I50.33 Acute on chronic diastolic (congestive) heart failure; E87.1 Hypo-osmolality and hyponatremia; I35.0 Nonrheumatic aortic (valve) stenosis; E83.42 Hypomagnesemia; E87.6 Hypokalemia; Z23 Encounter for immunization; Z20.822 Contact with and (suspected) exposure to COVID-19; Z79.899 Other long term (current) drug therapy
CPT/HCPCS: 36415; 71045; 80048; 80053; 83735; 83880; 84484; 85025; 85027; 87635; 90686; 93005; 93306; 93356; 99285; J1650; J1940; J3475; Q9957

== ENCOUNTER → 2023-07-07 13:36 | Outpatient (BNV) | payer OTHER, MEDICARE, SELFPAY | PROVIDERS: Emergency Provider Student in an Organized Health Care Education/Training Program; PCP Physician Assistant Medical; Visit Provider Internal Medicine | DX: I35.0 Nonrheumatic aortic (valve) stenosis (principal); I50.9 Heart failure, unspecified; R01.1 Cardiac murmur, unspecified | CPT/HCPCS: 93458; 99152; 99223; 99239 ==

== ENCOUNTER → 2023-07-07 14:18 | Outpatient (BNV) | payer OTHER, MEDICARE, SELFPAY | PROVIDERS: Admitting Provider Internal Medicine; Emergency Provider Student in an Organized Health Care Education/Training Program; PCP Physician Assistant Medical; Visit Provider Internal Medicine | DX: I35.0 Nonrheumatic aortic (valve) stenosis (principal); I50.9 Heart failure, unspecified | CPT/HCPCS: 93306; 99223 ==